=== PATIENT | female | born 1995 | race Hispanic/Latino ===

== ENCOUNTER 2017-03-19 07:36 | Outpatient (CLI) | payer OTHER ==
[~2017-03-19] VITALS: Ht 152.4 cm; Wt 66.1 kg
[2017-03-19 07:58] VITALS: BP 112/77
[2017-03-19] MEDS ORDERED: TYLE325C PO (08:18)
[2017-03-19] MEDS ORDERED: COLA100C5 PO (08:18)
[2017-03-19 09:22] VITALS: BP 128/88
== END 2017-03-19 09:41 | disposition home or self-care (01) ==
LOC: M LDO 07:36
PROVIDERS: ATTEND Obstetrics & Gynecology
DX: O47.1 False labor at or after 37 completed weeks of gestation (principal); Z3A.39 39 weeks gestation of pregnancy; Z91.010 Allergy to peanuts

== ENCOUNTER 2017-03-20 22:28 | Inpatient (IN) | payer OTHER ==
[~2017-03-20] VITALS: Ht 152.4 cm; Wt 66.1 kg
[~2017-03-20 22:28] MED LIST: COLA100C5 PO; TYLE325C PO
[2017-03-20 22:51] VITALS: BP 132/92
[2017-03-20] MEDS ORDERED: PENICILLIN G POTASSIUM IV 5 MU in D5W MINI-BAG PLUS 100 ML IV STA (23:33)
[2017-03-20] MEDS ORDERED: LACTATED RINGER'S 1000 ML IV STA (23:33)
--- NOTE | 2017-03-20 23:47 | HPEPDOC ---
Obstetrical History & Physical General Date of Admission Mar 20, 2017 at 23:20 History of Present Illness 21 y/o at 39+3 by LMP and 8 wk US with painful reg ctx's for the past 1-2 days. Seen yest and semt home. pos FM. No VB/LOF. Preg uncomplicated. Chief Complaint: Contractions, term Care Care: Good Care Past Medical History Past Obstetrical History : Past Obstetrical History: Multigrav[employer] History: Spontaneous (x1) Past Medical History Medical History denies Surgical History: Denies/None Family History Significant Family History: No pertinent family hx Social History Marital Status: Family situation: Spouse/partner home Psychosocial History: No pertinent psych hx * Smoker: non-smoker Alcohol: Denies Drugs: denies Abuse Violence Screening Have you been hit/kicked/slapp: No Have you been sexually assault: No Imunizations Tdap status: current Allergies Coded Allergies: No Known Allergies (Unverified , 03/19/17) Medications Scheduled Docusate Sodium (Colace) 100 Mg Cap, 100 MG PO DAILY Miscellaneous Medications (Tylenol) 325 Mg Cap, 325 MG PO Physical Examination Physical Examination GENERAL: Alert and oriented times three. BREAST: . ABDOMEN: Gravid and non-tender to touch. FETUS: Is vertex (VTX) by DOC DUKE check is 4-5 cm. HEART RATE: Regular rate and rhythm. LUNGS: Clear to auscultation (CTA). EXTREMITIES: No edema. Vital Signs/I&O Vital Signs Date Time Temp Pulse Resp B/P (MAP) Pulse Ox O2 Delivery O2 Flow Rate FiO2 03/20/17 22:51 98.3 109 18 132/92 (105) Laboratory Data [facility] Laboratory Tests 2 03/20/17 23:26: Serology Scanned Report Hepatitis B Testing Urine Culture: Other (gbs) Pertinent Laboratoy Data Blood Type: O+ RBC Antibody Screen: Negative HIV: Negative Hepatitis B: Negative Hepatitis C: Unknown Rapid Plasma Reagin: Nonreactive Rubella: Immune Varicella: Immune Chlamydia/Gonorrhea: Negative Group B Streptococcus: Positive Quad Screen Test: Declined Cystic Fibrosis: Negative Anatomy Ultrasound Ultrasound Date: Nov 05, 2016 Placenta Location: Anterior Normal Anatomy: Yes Placenta Previa: No Assessment Variability: Moderate Accelerations: Positive Decelerations: None Tocometer Contractions: Yes Frequency: regular Duration: greater than 60 seconds Strength: palpated as moderate Assessment/Plan Assessment Active labor Plan Admit and orient. Administrative Receptionist and consent. Diet: clrs Group B Streptococcus (GBS) pos. Will plan on cx check after 2nd dose PCN Labs and intravenous (IV) per unit protocol. Counseled on Pitocin and induction of labor (IOL). Lactated Ringers (LR): Bolus 1000 mL prior to epidural, then at 125 mL/hr. Anticipate normal spontaneous delivery C-S as appropriate. Sessions SESSIONS,CHACHA Oconnell MD Mar 20, 2017 23:47
[2017-03-20] MEDS: LR 1,000 ML IV SCH (23:52)
[2017-03-20 23:59] VITALS: BP 125/79
[2017-03-20 23:59] LABS: MEAN CORPUSCULAR HEMOGLOBIN 26.6 pg (27.0-33.0); MEAN CORPUSCULAR HGB CONC 31.9 g/dl (32.0-36.5); MEAN CORPUSCULAR VOLUME 83.3 fl (80.0-96.0); PLATELET COUNT, AUTOMATED 310 10^3/uL (150-450); RED CELL DISTRIBUTION WIDTH 14.7 % (11.5-14.5); WHITE BLOOD COUNT 11.5 10^3/uL (4.0-10.0)
[2017-03-21] VITALS (48 sets, daily range): BP systolic 89–127; BP diastolic 51–85
[2017-03-21] MEDS ORDERED: FENTANYL 2MCG/ML ROPIVACAINE 0.2% IN 0.9% NACL 200ML IVBAG As Ordered ONE (01:31)
[2017-03-21] MEDS ORDERED: EPIDURAL/PCA KEYS XX PRN (02:30)
[2017-03-21] MEDS ORDERED: FENTANYL/ROPIVACAINE/NACL BAG 200 ML EPIDURAL SCH (02:30)
[2017-03-21] MEDS ORDERED: ONDANSETRON 4MG/2ML VIAL (J2405) IV PRN ×2 (02:30→15:45)
[2017-03-21] MEDS ORDERED: diphenhydrAMINE INJ 50MG/ML VIAL (J1200) IV PRN (02:30)
[2017-03-21] MEDS ORDERED: EPIDURAL COMMENT XX SCH (02:30)
[2017-03-21] MEDS ORDERED: LACTATED RINGER'S 1000 ML IV PRN (02:30)
[2017-03-21] MEDS ORDERED: REFRIGERATOR IV KEYS XX PRN (02:30)
[2017-03-21] MEDS ORDERED: ePHEDrine SULFATE 25 MG/5 ML(5MG/ML) SYRINGE IV PRN (02:30)
[2017-03-21] MEDS ORDERED: NALOXONE INJ 0.4 MG/1 ML VIAL (J2310) IV PRN (02:30)
[2017-03-21] MEDS: PENICILLIN G POTASSIUM IV 2.5 MU in D5W 100 ML IV SCH ×3 (04:07→13:00)
--- NOTE | 2017-03-21 05:28 | IPNPDOC ---
Text Note Date of Service The patient was seen on 03/21/17. NOTE FHT Cat 1, now s/p epidural-feeling well. Getting second dose GBS prophy currently Cx /- with small amt clr fluid Will SBAR MAJ Tran at ~0730 Sessions VS,Ct, I+O VSCt, I+O Laboratory Tests 03/20/17 23:49 Red Blood Count 3.84 L, Mean Corpuscular Volume 83.3, Mean Corpuscular Hemoglobin 26.6 L, Mean Corpuscular Hemoglobin Concent 31.9 L, Red Cell Distribution Width 14.7 H Vital Signs Date Time Temp Pulse Resp B/P (MAP) Pulse Ox O2 Delivery O2 Flow Rate FiO2 03/21/17 05:01 75 18 89/51 (64) 03/21/17 03:30 97.7 SESSIONS,CHACHA Oconnell MD Mar 21, 2017 05:28
[2017-03-21] MEDS ORDERED: OXYTOCIN DRIP 30 UNITS in APPROPRIATE DILUENT 1 EA IV SCH ×2 (08:30→15:31)
[2017-03-21] MEDS: LR 1,000 ML IV SCH (11:09)
[2017-03-21] MEDS ORDERED: DIBUCAINE 1% OINTMENT 30GM TOP PRN (15:45)
[2017-03-21] MEDS ORDERED: DOCUSATE SODIUM 100 MG CAP PO PRN (15:45)
[2017-03-21] MEDS ORDERED: ANUSOL HC CREAM 30GM TOP PRN (15:45)
[2017-03-21] MEDS: IBUPROFEN 600 MG TAB PO PRN (18:36)
[2017-03-21] MEDS: ACETAMINOPHEN TAB 650MG DOSE (2X325MG) PO PRN (22:53)
[2017-03-22] MEDS: IBUPROFEN 600 MG TAB PO PRN ×3 (00:42→19:28)
[2017-03-22 06:00] VITALS: BP 110/72
--- NOTE | 2017-03-22 08:41 | IPN ---
DATE: 03/22/2017 This patient has requested a circumcision of their male infant. After discussing risks and benefits of circumcision, the medical and nonmedical indications, the penile block and aftercare, and answered all questions, the patient signed and witnessed the consent form. We are awaiting the clearance by the business banking officer.
[2017-03-22] MEDS: PRENATAL VITAMINS CHEWABLE TABLET PO SCH (08:45)
[2017-03-22 18:00] VITALS: BP 121/71
[2017-03-23] MEDS: ACETAMINOPHEN TAB 650MG DOSE (2X325MG) PO PRN (00:13)
[2017-03-23] MEDS: IBUPROFEN 600 MG TAB PO PRN ×2 (02:33→09:07)
[2017-03-23 05:46] VITALS: BP 124/69
--- NOTE | 2017-03-23 08:02 | DSES ---
DATE OF ADMISSION: 03/20/2017 DATE OF DISCHARGE: 03/23/2017 This lady is a 21-year-old 2, now para 1, was admitted with contractions , had a spontaneous vaginal delivery, live male infant 6 pounds 14 ounces, scores of 8 and 9 at 1 and 5 minutes, respectively. She had an epidural in place, had a second-degree perineal tear which was repaired in the usual fashion. Her admitting hemoglobin 10.2, hematocrit 32.2, and platelets were 310. Her vital signs on discharge; Blood pressure was 124/69, respirations 19, pulse 82, and temperature 98.3. We discussed phlebitis, cystitis, mastitis, endometritis, cellulitis, diet, exercise, pain management, perineal, breast, and wound care. She was normocephalic, atraumatic. Neck: Full range of motion. Pupils equal and reactive to light. Distal pulses were normal, symmetric. No evidence of deep venous thrombosis (DVT), pulmonary embolus (PE), or superficial phlebitis. Lungs were clear bilaterally to bases, no wheezes or rhonchi. No costovertebral angle (CVA) tenderness. Uterus 2 below. Lochia is moderate. Four quadrant bowel sounds are noted. Perineum is healing. No rashes, lesions, or pruritus. No arthralgia, myalgia. No complaints of cough, wheezes, shortness of breath, or dyspnea on exertion. No chest pain, not bleeding. Neurological complete. No incontinence, urgency, or frequency. No nausea, vomiting, diarrhea, or constipation. In summary, we have a term gestation delivered a live male , discharged to followup in 6 weeks' time for checkup. edited: 03/23/2017 1342 tkf [id number]
[2017-03-23] MEDS ORDERED: IBUP200C10 PO (08:33)
[2017-03-23] MEDS ORDERED: PREN29TA4 PO (08:33)
[2017-03-23] MEDS ORDERED: APAP325T4 PO (08:33)
[2017-03-23] MEDS: PRENATAL VITAMINS CHEWABLE TABLET PO SCH (09:07)
== END 2017-03-23 12:00 | disposition home or self-care (01) | DRG 775 ==
LOC: M LDO 22:28 → M LDI 23:20 → M OBS 03-21 17:44
PROVIDERS: ADMIT Obstetrics & Gynecology; ATTEND Obstetrics & Gynecology
PROC: 10E0XZZ Delivery of Products of Conception, External Approach (ICD-10-PCS; principal; 2017-03-21)
PROC: 0KQM0ZZ Repair Perineum Muscle, Open Approach (ICD-10-PCS; 2017-03-21)
DX: O69.82X0 Labor and delivery complicated by other cord entanglement, without compression, not applicable or unspecified (principal); Z37.0 Single live birth; Z3A.39 39 weeks gestation of pregnancy; O99.820 Streptococcus B carrier state complicating pregnancy; O70.1 Second degree perineal laceration during delivery

== ENCOUNTER 2022-08-04 07:08 | Emergency (ER) | payer OTHER ==
[~2022-08-04] VITALS: Ht 152.4 cm; Wt 56.9 kg
[~2022-08-04 07:08] MED LIST changes: +APAP325T4 PO; +IBUP200C25 PO; +PREN29TA4 PO
[2022-08-04] MEDS ORDERED: ACETAMINOPHEN TAB 650MG DOSE (2X325MG) PO ONE (07:40)
[2022-08-04] MEDS ORDERED: ONDANSETRON 4MG ORAL DISINTEGRATING TAB PO ONE (07:40)
[2022-08-04] MEDS ORDERED: ONDA4TAB6 PO (08:41)
[2022-08-04 08:49] VITALS: BP 105/65
== END 2022-08-04 08:50 | disposition home or self-care (01) ==
LOC: M ED 07:08
DX: F07.81 Postconcussional syndrome (principal); S00.03XA Contusion of scalp, initial encounter; W22.8XXA Striking against or struck by other objects, initial encounter; Y99.1 Military activity; Z91.010 Allergy to peanuts; Z79.899 Other long term (current) drug therapy

== ENCOUNTER 2022-09-21 11:37 | Emergency (ER) | payer OTHER ==
[~2022-09-21] VITALS: Ht 152.4 cm; Wt 56.5 kg
[~2022-09-21 11:37] MED LIST changes: +ONDA4TAB6 PO
[2022-09-21 13:04] LABS: BASO % 0.2 % (0.0-1.0); EOS # 0.1 10^3/uL (0.0-0.5); EOS % 0.9 % (0.0-3.0); HEMATOCRIT 35.3 % (36.0-47.0); HEMOGLOBIN 11.3 g/dl (12.0-15.5); LYMPH # 1.8 10^3/uL (1.5-5.0); LYMPH % 19.5 % (24.0-44.0); MEAN CORPUSCULAR HEMOGLOBIN 27.4 pg (27.0-33.0); MEAN CORPUSCULAR VOLUME 85.7 fl (80.0-96.0); MONO # 0.5 10^3/uL (0.0-0.8); MONO % 5.8 % (2.0-8.0); NEUTROPHILS # 6.6 10^3/uL (1.5-8.5); NEUTROPHILS % 73.2 % (36.0-66.0); PLATELET COUNT, AUTOMATED 371 10^3/uL (150-450); RED BLOOD COUNT 4.12 10^6/uL (4.00-5.40)
[2022-09-21 13:20] LABS: LIPASE 30 U/L (12-53)
[2022-09-21 13:22] LABS: ALBUMIN 3.8 G/DL (3.2-5.2); ALKALINE PHOSPHATASE 72 U/L (46-116); ALT/SGPT 11 U/L (7.0-40); AST/SGOT 15 U/L (<34); BILIRUBIN,DIRECT 0.4 MG/DL (<0.4); BILIRUBIN,TOTAL 1.4 MG/DL (0.3-1.2); BLOOD UREA NITROGEN 7 MG/DL (9-23); CALCIUM LEVEL 8.3 MG/DL (8.5-10.1); CARBON DIOXIDE LEVEL 25 MMOL/L (20-31); CHLORIDE LEVEL 103 MMOL/L (98-107); CREATININE FOR GFR 0.45 MG/DL (0.55-1.30); GLOMERULAR FILTRATION RATE > 60.0 (>60); GLUCOSE, FASTING 82 MG/DL (60-100); POTASSIUM SERUM 3.8 MMOL/L (3.5-5.1); SODIUM LEVEL 136 MMOL/L (136-145); TOTAL PROTEIN 7.2 G/DL (5.7-8.2)
[2022-09-21 13:35] LABS: HCG, SERUM QUANTITATIVE 42438.7 MIU/ML (<4.2)
[2022-09-21] MEDS ORDERED: NS 1,000 ML IV ONE (14:15)
[2022-09-21] MEDS ORDERED: ONDANSETRON 4MG 2ML VIAL IV ONE (14:15)
[2022-09-21] MEDS ORDERED: UNIS25TA3 PO (15:50)
[2022-09-21] MEDS ORDERED: ONDA4TAB6 PO (15:50)
[2022-09-21] MEDS ORDERED: PYRI25TA2 PO (15:50)
[2022-09-21 16:22] VITALS: BP 114/68
== END 2022-09-21 16:27 | disposition home or self-care (01) ==
LOC: M ED 11:37
DX: O21.1 Hyperemesis gravidarum with metabolic disturbance (principal); Z3A.01 Less than 8 weeks gestation of pregnancy; Z91.010 Allergy to peanuts
CPT/HCPCS: 80048; 80076; 81001; 83690; 84702; 85025; 96374; 99284; J2405

== ENCOUNTER 2022-09-29 12:19 | Emergency (ER) | payer OTHER ==
[~2022-09-29] VITALS: Ht 152.4 cm; Wt 86.9 kg
[~2022-09-29 12:19] MED LIST changes: +PYRI25TA2 PO; +UNIS25TA3 PO
[2022-09-29] MEDS ORDERED: REGL10TA6 (12:26)
[2022-09-29] MEDS ORDERED: REGL5TAB2 PO (13:16)
[2022-09-29] MEDS ORDERED: PROMETHAZINE 25MG SUPP PR ONE (14:00)
[2022-09-29] MEDS ORDERED: NS 1,000 ML IV ONE (14:00)
[2022-09-29 14:08] LABS: BASO # 0.1 10^3/uL (0.0-0.2); BASO % 0.5 % (0.0-1.0); EOS # 0.1 10^3/uL (0.0-0.5); EOS % 0.6 % (0.0-3.0); HEMATOCRIT 35.5 % (36.0-47.0); HEMOGLOBIN 11.6 g/dl (12.0-15.5); LYMPH # 1.8 10^3/uL (1.5-5.0); MEAN CORPUSCULAR HEMOGLOBIN 28.2 pg (27.0-33.0); MEAN CORPUSCULAR HGB CONC 32.7 g/dl (32.0-36.5); MEAN CORPUSCULAR VOLUME 86.4 fl (80.0-96.0); MONO # 0.6 10^3/uL (0.0-0.8); MONO % 5.3 % (2.0-8.0); NEUTROPHILS # 7.9 10^3/uL (1.5-8.5); NEUTROPHILS % 76.4 % (36.0-66.0); PLATELET COUNT, AUTOMATED 337 10^3/uL (150-450); RED BLOOD COUNT 4.11 10^6/uL (4.00-5.40); WHITE BLOOD COUNT 10.3 10^3/uL (4.0-10.0)
[2022-09-29] MEDS ORDERED: PROM25SU3 PR (15:29)
[2022-09-29] MEDS ORDERED: ONDANSETRON 4MG 2ML VIAL IV ONE (15:50)
[2022-09-29 16:20] VITALS: BP 101/64
== END 2022-09-29 16:22 | disposition home or self-care (01) ==
LOC: M ED 12:19
DX: O21.9 Vomiting of pregnancy, unspecified (principal); Z3A.00 Weeks of gestation of pregnancy not specified; Z91.040 Latex allergy status; Z91.010 Allergy to peanuts; Z79.899 Other long term (current) drug therapy
CPT/HCPCS: 80047; 84702; 85025; 96374; 99284; J2405

== ENCOUNTER 2022-10-08 11:18 | Emergency (ER) | payer OTHER ==
[~2022-10-08] VITALS: Ht 152.4 cm; Wt 54.5 kg
[~2022-10-08 11:18] MED LIST changes: +PROM25SU3 PR; +REGL10TA6; +REGL5TAB2 PO
[2022-10-08 12:18] LABS: BASO # 0.1 10^3/uL (0.0-0.2); BASO % 0.5 % (0.0-1.0); EOS % 0.4 % (0.0-3.0); HEMATOCRIT 36.5 % (36.0-47.0); LYMPH # 1.8 10^3/uL (1.5-5.0); LYMPH % 17.7 % (24.0-44.0); MEAN CORPUSCULAR HEMOGLOBIN 28.5 pg (27.0-33.0); MEAN CORPUSCULAR HGB CONC 32.9 g/dl (32.0-36.5); MEAN CORPUSCULAR VOLUME 86.7 fl (80.0-96.0); MONO # 0.5 10^3/uL (0.0-0.8); MONO % 5.1 % (2.0-8.0); NEUTROPHILS # 7.9 10^3/uL (1.5-8.5); PLATELET COUNT, AUTOMATED 328 10^3/uL (150-450); RED BLOOD COUNT 4.21 10^6/uL (4.00-5.40); WHITE BLOOD COUNT 10.4 10^3/uL (4.0-10.0)
[2022-10-08 12:49] LABS: LIPASE 33 U/L (12-53)
[2022-10-08 12:51] LABS: ALBUMIN 3.5 G/DL (3.2-5.2); ALKALINE PHOSPHATASE 58 U/L (46-116); ALT/SGPT 11 U/L (7.0-40); AST/SGOT 8 U/L (<34); BILIRUBIN,DIRECT 0.3 MG/DL (<0.4); BILIRUBIN,TOTAL 1.1 MG/DL (0.3-1.2); BLOOD UREA NITROGEN 6 MG/DL (9-23); CALCIUM LEVEL 8.9 MG/DL (8.5-10.1); CARBON DIOXIDE LEVEL 24 MMOL/L (20-31); CHLORIDE LEVEL 103 MMOL/L (98-107); CREATININE FOR GFR 0.51 MG/DL (0.55-1.30); GLOMERULAR FILTRATION RATE > 60.0 (>60); GLUCOSE, FASTING 79 MG/DL (60-100); POTASSIUM SERUM 4.2 MMOL/L (3.5-5.1); SODIUM LEVEL 136 MMOL/L (136-145); TOTAL PROTEIN 7.1 G/DL (5.7-8.2)
[2022-10-08 13:02] LABS: HCG, SERUM QUALITATIVE POSITIVE (NEGATIVE)
[2022-10-08] MEDS ORDERED: NS 1,000 ML IV ONE ×2 (13:45)
[2022-10-08] MEDS ORDERED: ONDANSETRON 4MG 2ML VIAL IV ONE (13:45)
[2022-10-08 15:00] LABS: HCG, SERUM QUANTITATIVE 275882.4 MIU/ML (<4.2)
[2022-10-08 16:18] VITALS: BP 113/72
[2022-10-08] MEDS ORDERED: ONDA4TAB6 PO (16:29)
[2022-10-12] MEDS ORDERED: PREN200C PO (07:11)
[2022-10-12] MEDS ORDERED: MIRA3350 PO (10:34)
[2022-10-12] MEDS ORDERED: COLA100C5 PO (10:34)
== END 2022-10-08 16:47 | disposition home or self-care (01) ==
LOC: M ED 11:18
DX: O21.0 Mild hyperemesis gravidarum (principal); Z3A.01 Less than 8 weeks gestation of pregnancy; Z91.040 Latex allergy status; Z91.010 Allergy to peanuts
CPT/HCPCS: 80048; 80076; 81001; 83690; 84702; 84703; 85025; 96374; 99284; J2405

== ENCOUNTER 2022-10-18 10:19 | Emergency (ER) | payer OTHER ==
[~2022-10-18] VITALS: Ht 152.4 cm; Wt 54.3 kg
[~2022-10-18 10:19] MED LIST changes: +MIRA3350 PO; +PREN200C PO
[2022-10-18 10:20] VITALS: TEMP 97.9
[2022-10-18 12:19] LABS: BASO % 0.3 % (0.0-1.0); EOS # 0.1 10^3/uL (0.0-0.5); EOS % 0.7 % (0.0-3.0); HEMATOCRIT 35.7 % (36.0-47.0); HEMOGLOBIN 11.7 g/dl (12.0-15.5); LYMPH # 1.9 10^3/uL (1.5-5.0); LYMPH % 17.4 % (24.0-44.0); MEAN CORPUSCULAR HEMOGLOBIN 28.4 pg (27.0-33.0); MEAN CORPUSCULAR HGB CONC 32.8 g/dl (32.0-36.5); MEAN CORPUSCULAR VOLUME 86.7 fl (80.0-96.0); MONO # 0.4 10^3/uL (0.0-0.8); NEUTROPHILS # 8.4 10^3/uL (1.5-8.5); NEUTROPHILS % 77.2 % (36.0-66.0); PLATELET COUNT, AUTOMATED 323 10^3/uL (150-450); RED BLOOD COUNT 4.12 10^6/uL (4.00-5.40); WHITE BLOOD COUNT 10.8 10^3/uL (4.0-10.0)
[2022-10-18 12:32] LABS: LIPASE 33 U/L (12-53)
[2022-10-18 12:34] LABS: ALBUMIN 3.4 G/DL (3.2-5.2); ALKALINE PHOSPHATASE 57 U/L (46-116); ALT/SGPT 11 U/L (7.0-40); AST/SGOT 12 U/L (<34); BILIRUBIN,DIRECT 0.2 MG/DL (<0.4); BILIRUBIN,TOTAL 0.6 MG/DL (0.3-1.2); BLOOD UREA NITROGEN 9 MG/DL (9-23); CALCIUM LEVEL 8.4 MG/DL (8.5-10.1); CARBON DIOXIDE LEVEL 24 MMOL/L (20-31); CHLORIDE LEVEL 106 MMOL/L (98-107); CREATININE FOR GFR 0.47 MG/DL (0.55-1.30); GLOMERULAR FILTRATION RATE > 60.0 (>60); GLUCOSE, FASTING 80 MG/DL (60-100); POTASSIUM SERUM 4.1 MMOL/L (3.5-5.1); SODIUM LEVEL 136 MMOL/L (136-145); TOTAL PROTEIN 6.9 G/DL (5.7-8.2)
[2022-10-18] MEDS ORDERED: METOCLOPRAMIDE INJ 10MG/2ML VIAL IV ONE (14:40)
[2022-10-18] MEDS ORDERED: NS 1,000 ML IV ONE (15:55)
[2022-10-18] MEDS ORDERED: diphenhydrAMINE 50MG/ML VIAL IV STA (16:36)
[2022-10-18 18:27] VITALS: BP 101/67; O2SAT 96
== END 2022-10-18 18:31 | disposition home or self-care (01) ==
LOC: M ED 10:19
DX: O21.9 Vomiting of pregnancy, unspecified (principal); Z3A.09 9 weeks gestation of pregnancy; Z91.040 Latex allergy status; Z91.010 Allergy to peanuts; Z79.899 Other long term (current) drug therapy
CPT/HCPCS: 76801; 80048; 80076; 83690; 85025; 93976; 96374; 96375; 99284; J1200; J2765

== ENCOUNTER 2022-11-01 07:24 | Emergency (ER) | payer OTHER ==
[~2022-11-01] VITALS: Ht 152.4 cm; Wt 52.6 kg
[2022-11-01 08:14] LABS: BASO % 0.5 % (0.0-1.0); EOS # 0.1 10^3/uL (0.0-0.5); EOS % 1.4 % (0.0-3.0); HEMOGLOBIN 11.8 g/dl (12.0-15.5); LYMPH # 1.8 10^3/uL (1.5-5.0); MEAN CORPUSCULAR HEMOGLOBIN 29.1 pg (27.0-33.0); MEAN CORPUSCULAR HGB CONC 33.7 g/dl (32.0-36.5); MEAN CORPUSCULAR VOLUME 86.2 fl (80.0-96.0); MONO # 0.5 10^3/uL (0.0-0.8); MONO % 5.2 % (2.0-8.0); NEUTROPHILS # 6.2 10^3/uL (1.5-8.5); NEUTROPHILS % 71.6 % (36.0-66.0); PLATELET COUNT, AUTOMATED 307 10^3/uL (150-450); RED BLOOD COUNT 4.06 10^6/uL (4.00-5.40); WHITE BLOOD COUNT 8.7 10^3/uL (4.0-10.0)
[2022-11-01 08:26] LABS: APPEARANCE, URINE HAZY (CLEAR); BACTERIA, URINE AUTO NEGATIVE (NEGATIVE); BILIRUBIN, URINE AUTO NEGATIVE (NEGATIVE); BLOOD, URINE BLOOD 1+ (NEGATIVE); COLOR, URINE YELLOW (YELLOW); GLUCOSE, URINE (UA) AUTO NEGATIVE (NEGATIVE); KETONE, URINE AUTO NEGATIVE (NEGATIVE); LEUKOCYTE ESTERASE, URINE AUTO TRACE (NEGATIVE); MUCUS, URINE SMALL (NEGATIVE); NITRITE, URINE AUTO NEGATIVE (NEGATIVE); PROTEIN, URINE AUTO NEGATIVE (NEGATIVE); RBC, URINE AUTO 1 /HPF (0-3); SPECIFIC GRAVITY URINE AUTO 1.024 (1.002-1.035); SQUAMOUS EPITHELIAL CELL UR AU 4 /HPF (0-6); UROBILINOGEN, URINE AUTO 0.2 mg/dL (0.0-2.0); WBC, URINE AUTO 3 /HPF (0-3)
[2022-11-01 09:20] LABS: HCG, SERUM QUANTITATIVE 130524.6 MIU/ML (<4.2)
[2022-11-01] MEDS ORDERED: ACETAMINOPHEN 500 MG TAB PO ONE (09:20)
[2022-11-01 10:17] LABS: ALBUMIN 3.2 G/DL (3.2-5.2); ALKALINE PHOSPHATASE 54 U/L (46-116); ALT/SGPT 12 U/L (7.0-40); AST/SGOT 13 U/L (<34); BILIRUBIN,TOTAL 0.7 MG/DL (0.3-1.2); BLOOD UREA NITROGEN 8 MG/DL (9-23); CALCIUM LEVEL 8.7 MG/DL (8.5-10.1); CARBON DIOXIDE LEVEL 22 MMOL/L (20-31); CHLORIDE LEVEL 105 MMOL/L (98-107); CREATININE FOR GFR 0.56 MG/DL (0.55-1.30); GLOMERULAR FILTRATION RATE > 60.0 (>60); GLUCOSE, FASTING 79 MG/DL (60-100); POTASSIUM SERUM 4.1 MMOL/L (3.5-5.1); SODIUM LEVEL 134 MMOL/L (136-145); TOTAL PROTEIN 6.7 G/DL (5.7-8.2)
[2022-11-01] MEDS ORDERED: ACET-910 PO (10:42)
[2022-11-01 11:41] LABS: GC DNA AMPLIFICATION NEGATIVE (NEGATIVE)
[2022-11-01 12:35] VITALS: BP 102/66; TEMP 96.7; O2SAT 100
== END 2022-11-01 12:37 | disposition home or self-care (01) ==
LOC: M ED 07:24
DX: O26.891 Other specified pregnancy related conditions, first trimester (principal); R10.2 Pelvic and perineal pain; M54.50 Low back pain, unspecified; Z91.010 Allergy to peanuts; Z91.040 Latex allergy status; Z3A.11 11 weeks gestation of pregnancy; Z79.810 Long term (current) use of selective estrogen receptor modulators (SERMs); Z79.899 Other long term (current) drug therapy

== ENCOUNTER 2022-12-22 10:56 | Emergency (ER) | payer OTHER ==
[~2022-12-22] VITALS: Ht 152.4 cm; Wt 56.9 kg
[~2022-12-22 10:56] MED LIST changes: +ACET-910 PO
[2022-12-22 10:57] VITALS: TEMP 97.9
[2022-12-22 11:47] LABS: BASO % 0.3 % (0.0-1.0); EOS # 0.1 10^3/uL (0.0-0.5); EOS % 1.1 % (0.0-3.0); HEMOGLOBIN 10.8 g/dl (12.0-15.5); LYMPH # 1.6 10^3/uL (1.5-5.0); MEAN CORPUSCULAR HEMOGLOBIN 29.8 pg (27.0-33.0); MEAN CORPUSCULAR HGB CONC 33.8 g/dl (32.0-36.5); MEAN CORPUSCULAR VOLUME 88.4 fl (80.0-96.0); MONO # 0.6 10^3/uL (0.0-0.8); MONO % 6.2 % (2.0-8.0); NEUTROPHILS # 7.2 10^3/uL (1.5-8.5); NEUTROPHILS % 74.9 % (36.0-66.0); PLATELET COUNT, AUTOMATED 331 10^3/uL (150-450); RED BLOOD COUNT 3.62 10^6/uL (4.00-5.40); WHITE BLOOD COUNT 9.6 10^3/uL (4.0-10.0)
[2022-12-22 12:00] LABS: INR 1.02; PROTHROMBIN TIME 13.1 SECONDS (12.5-14.5)
[2022-12-22 12:01] LABS: PARTIAL THROMBOPLASTIN TIME 27.6 SECONDS (24.8-34.2)
[2022-12-22 12:08] LABS: CK-MB VALUE MASS < 1.0 NG/ML (<3.6)
[2022-12-22 12:09] LABS: LIPASE 37 U/L (12-53)
[2022-12-22 12:11] LABS: ALBUMIN 2.7 G/DL (3.2-5.2); ALKALINE PHOSPHATASE 80 U/L (46-116); ALT/SGPT < 9 U/L (7.0-40); AST/SGOT 11 U/L (<34); BILIRUBIN,DIRECT < 0.1 MG/DL (<0.4); BILIRUBIN,TOTAL 0.5 MG/DL (0.3-1.2); BLOOD UREA NITROGEN 7 MG/DL (9-23); CALCIUM LEVEL 8.4 MG/DL (8.5-10.1); CARBON DIOXIDE LEVEL 24 MMOL/L (20-31); CHLORIDE LEVEL 106 MMOL/L (98-107); CREATININE FOR GFR 0.36 MG/DL (0.55-1.30); GLOMERULAR FILTRATION RATE > 60.0 (>60); GLUCOSE, FASTING 95 MG/DL (60-100); POTASSIUM SERUM 3.6 MMOL/L (3.5-5.1); SODIUM LEVEL 138 MMOL/L (136-145); TOTAL PROTEIN 6.5 G/DL (5.7-8.2)
[2022-12-22 12:12] LABS: FREE T4 0.95 NG/DL (0.89-1.76); THYROID STIMULATING HORMONE 0.991 uIU/ML (0.55-4.78)
[2022-12-22 12:14] LABS: CPK CREATINE PHOSPHOKINASE 38 U/L (34-145); MB/CK RELATIVE INDEX 2.63 (< OR =4)
[2022-12-22 12:28] LABS: RSV AMPLIFICATION NEGATIVE (NEGATIVE)
[2022-12-22] MEDS ORDERED: KETOROLAC 30 MG/ML 1ML VIAL IV ONE (13:10)
[2022-12-22 13:25] LABS: CK-MB VALUE MASS < 1.0 NG/ML (<3.6)
[2022-12-22 13:27] LABS: CPK CREATINE PHOSPHOKINASE 37 U/L (34-145)
[2022-12-22 13:56] VITALS: O2SAT 100
[2022-12-22 14:00] VITALS: BP 110/74
== END 2022-12-22 15:05 | disposition home or self-care (01) ==
LOC: M ED 10:56
DX: O99.419 Diseases of the circulatory system complicating pregnancy, unspecified trimester (principal); Z3A.00 Weeks of gestation of pregnancy not specified; Z91.010 Allergy to peanuts; Z91.040 Latex allergy status; Z79.899 Other long term (current) drug therapy
CPT/HCPCS: 71045; 80047; 80048; 80076; 82550; 82553; 83690; 84439; 84443; 84484; 85025; 85610; 85730; 87631; 93005; 93041; 94760; 96374; 99285; J1885

== ENCOUNTER 2023-03-07 12:45 | Outpatient (CLI) | payer OTHER ==
[~2023-03-07] VITALS: Ht 152.4 cm; Wt 59.0 kg
[2023-03-07] MEDS ORDERED: UNIS25TA3 PO (13:10)
[2023-03-07] MEDS ORDERED: HOME MED LIST COMPLETE! XX SCH (13:10)
[2023-03-07] MEDS ORDERED: PRENTAB9 PO (13:10)
[2023-03-07 13:12] VITALS: BP 116/73
[2023-03-07] MEDS ORDERED: LACTATED RINGER'S 1000 ML IV STA (13:35)
[2023-03-07] MEDS ORDERED: PROMETHAZINE 25MG/ML 1ML VIAL IV PRN (13:40)
[2023-03-07 15:05] VITALS: BP 103/72
== END 2023-03-07 16:35 | disposition home or self-care (01) ==
LOC: M LDO 12:45
PROVIDERS: ATTEND Advanced Practice Midwife
DX: O26.893 Other specified pregnancy related conditions, third trimester (principal); R11.0 Nausea; R42 Dizziness and giddiness; Z3A.29 29 weeks gestation of pregnancy; O99.613 Diseases of the digestive system complicating pregnancy, third trimester; K59.00 Constipation, unspecified; Z79.899 Other long term (current) drug therapy; Z91.010 Allergy to peanuts; Z91.040 Latex allergy status
CPT/HCPCS: 59025; 96374; G0463; J2550

== ENCOUNTER 2023-03-16 13:19 | Outpatient (CLI) | payer OTHER ==
[~2023-03-16] VITALS: Ht 152.4 cm; Wt 62.7 kg
[~2023-03-16 13:19] MED LIST changes: +PRENTAB9 PO
[2023-03-16 13:34] VITALS: BP 119/74
[2023-03-16 14:52] LABS: APPEARANCE, URINE CLEAR (CLEAR); BACTERIA, URINE AUTO NEGATIVE (NEGATIVE); BILIRUBIN, URINE AUTO NEGATIVE (NEGATIVE); BLOOD, URINE BLOOD NEGATIVE (NEGATIVE); COLOR, URINE YELLOW (YELLOW); GLUCOSE, URINE (UA) AUTO NEGATIVE (NEGATIVE); KETONE, URINE AUTO NEGATIVE (NEGATIVE); LEUKOCYTE ESTERASE, URINE AUTO NEGATIVE (NEGATIVE); NITRITE, URINE AUTO NEGATIVE (NEGATIVE); PROTEIN, URINE AUTO NEGATIVE (NEGATIVE); RBC, URINE AUTO 0 /HPF (0-3); SPECIFIC GRAVITY URINE AUTO 1.012 (1.002-1.035); SQUAMOUS EPITHELIAL CELL UR AU 0 /HPF (0-6); UROBILINOGEN, URINE AUTO 0.2 mg/dL (0.0-2.0); WBC, URINE AUTO 0 /HPF (0-3)
== END 2023-03-16 15:30 | disposition home or self-care (01) ==
LOC: M LDO 13:19
PROVIDERS: ATTEND Advanced Practice Midwife
DX: O23.593 Infection of other part of genital tract in pregnancy, third trimester (principal); O26.893 Other specified pregnancy related conditions, third trimester; R10.2 Pelvic and perineal pain; M54.50 Low back pain, unspecified; N89.8 Other specified noninflammatory disorders of vagina; Z3A.30 30 weeks gestation of pregnancy; Z91.010 Allergy to peanuts; Z91.040 Latex allergy status
CPT/HCPCS: 59025; 81001; 87086; G0463

== ENCOUNTER 2023-03-29 06:24 | Outpatient (CLI) | payer OTHER ==
[~2023-03-29] VITALS: Ht 152.4 cm; Wt 62.8 kg
[2023-03-29 06:35] VITALS: BP 98/63
[2023-03-29] MEDS ORDERED: ONDANSETRON 4MG 2ML VIAL IV ONE (07:25)
[2023-03-29] MEDS ORDERED: HOME MED LIST COMPLETE! XX SCH (07:25)
[2023-03-29] MEDS ORDERED: LR 1,000 ML IV ONE (07:30)
[2023-03-29 07:37] LABS: HEMATOCRIT 29.8 % (36.0-47.0); HEMOGLOBIN 9.7 g/dl (12.0-15.5); MEAN CORPUSCULAR HEMOGLOBIN 27.1 pg (27.0-33.0); MEAN CORPUSCULAR HGB CONC 32.6 g/dl (32.0-36.5); MEAN CORPUSCULAR VOLUME 83.2 fl (80.0-96.0); PLATELET COUNT, AUTOMATED 357 10^3/uL (150-450); RED BLOOD COUNT 3.58 10^6/uL (4.00-5.40)
[2023-03-29] MEDS ORDERED: ACETAMINOPHEN 500 MG TAB PO ONE (08:30)
[2023-03-29 08:51] LABS: LIPASE 33 U/L (12-53)
[2023-03-29 08:53] LABS: AMYLASE 95 U/L (30-118)
== END 2023-03-29 09:20 | disposition home or self-care (01) ==
LOC: M LDO 06:24
PROVIDERS: ATTEND Obstetrics & Gynecology
DX: O99.513 Diseases of the respiratory system complicating pregnancy, third trimester (principal); O26.893 Other specified pregnancy related conditions, third trimester; J06.9 Acute upper respiratory infection, unspecified; R25.2 Cramp and spasm; R11.0 Nausea; Z3A.32 32 weeks gestation of pregnancy
CPT/HCPCS: 59025; 82150; 83690; 85027; 87635; 96360; G0463; J2405

== ENCOUNTER 2023-04-11 07:02 | Outpatient (CLI) | payer OTHER ==
[~2023-04-11] VITALS: Ht 152.4 cm; Wt 63.0 kg
[~2023-04-11 07:02] MED LIST changes: +ALBUTEROL SULFATE 2.5MG/0.5ML INH NEB SOLN INH PRN; +EPINEPHrine INJ 1 MG/ML 1ML AMP IM PRN; +IRON SUCROSE 300 MG in NS 250 ML OVER 90 MIN. IV ONE; +NS 1,000 ML IV SCH; +diphenhydrAMINE 50MG/ML VIAL IV PRN; +methylPREDNISolone 125MG 2ML VIAL IV PRN
[2023-04-11 07:15] VITALS: BP 116/71; O2SAT 100
[2023-04-11 09:35] VITALS: BP 106/63; O2SAT 100
== END 2023-04-11 09:35 ==
LOC: M INFU 07:02
PROVIDERS: ATTEND Obstetrics & Gynecology
DX: D50.9 Iron deficiency anemia, unspecified (principal)
CPT/HCPCS: 96365; 96366; J1756

== ENCOUNTER 2023-04-18 07:15 | Outpatient (CLI) | payer OTHER ==
[~2023-04-18] VITALS: Ht 152.4 cm; Wt 63.7 kg
[~2023-04-18 07:15] MED LIST changes: -IRON SUCROSE 300 MG in NS 250 ML OVER 90 MIN. IV ONE; -NS 1,000 ML IV SCH
[2023-04-18] MEDS ORDERED: NS 1,000 ML IV SCH (07:30)
[2023-04-18] MEDS ORDERED: IRON SUCROSE 300 MG in NS 250 ML OVER 90 MIN. IV ONE (07:30)
[2023-04-18 07:32] VITALS: BP 117/70; O2SAT 99
[2023-04-18 09:12] VITALS: BP 111/74; O2SAT 98
== END 2023-04-18 09:13 | disposition home or self-care (01) ==
LOC: M INFU 07:15
PROVIDERS: ATTEND Obstetrics & Gynecology
DX: D50.9 Iron deficiency anemia, unspecified (principal); Z91.010 Allergy to peanuts; Z91.040 Latex allergy status
CPT/HCPCS: 96365; J1756

== ENCOUNTER 2023-04-25 07:25 | Outpatient (CLI) | payer OTHER ==
[~2023-04-25 07:25] MED LIST changes: +NS 1,000 ML IV SCH
[2023-04-25 07:33] VITALS: BP 116/68; O2SAT 97
[2023-04-25] MEDS ORDERED: IRON SUCROSE 300 MG in NS 250 ML OVER 90 MIN. IV ONE (07:35)
[2023-04-25 09:00] VITALS: BP 103/56; O2SAT 100
[2023-04-25 09:30] VITALS: BP 108/66; O2SAT 99
== END 2023-04-25 09:33 ==
LOC: M INFU 07:25
PROVIDERS: ATTEND Obstetrics & Gynecology
DX: D50.9 Iron deficiency anemia, unspecified (principal)
CPT/HCPCS: 96365; J1756

== ENCOUNTER 2023-05-12 12:14 | Inpatient (IN) | payer OTHER ==
[~2023-05-12] VITALS: Ht 152.4 cm; Wt 64.0 kg
[2023-05-12] VITALS (24 sets, daily range): BP systolic 105–141; BP diastolic 64–91; O2SAT 99
[~2023-05-12 12:14] MED LIST changes: -ALBUTEROL SULFATE 2.5MG/0.5ML INH NEB SOLN INH PRN; -EPINEPHrine INJ 1 MG/ML 1ML AMP IM PRN; -NS 1,000 ML IV SCH; -diphenhydrAMINE 50MG/ML VIAL IV PRN; -methylPREDNISolone 125MG 2ML VIAL IV PRN
[2023-05-12] MEDS ORDERED: LR 1,000 ML IV SCH (12:25)
[2023-05-12] MEDS ORDERED: LACTATED RINGER'S 1000 ML IV STA (12:25)
[2023-05-12] MEDS ORDERED: METHYLERGONOVINE MALEATE 0.2MG/ML 1ML VIAL IM PRN (12:25)
[2023-05-12] MEDS ORDERED: LIDOCAINE 1% MDV 20ML VIAL INFIL PRN (12:25)
[2023-05-12] MEDS ORDERED: OXYTOCIN DRIP 30 UNITS in IV 1 EA IV PRN ×4 (12:25)
[2023-05-12] MEDS ORDERED: CARBOPROST TROMETHAMINE 250 MCG/ML AMP IM PRN (12:25)
[2023-05-12] MEDS ORDERED: PENICILLIN G POTASSIUM 5 MU IV 5 MU in D5W MINI-BAG PLUS 100 ML IV STA (12:25)
[2023-05-12] MEDS ORDERED: TRANEXAMIC ACID INJection 1,000 MG in NS 100 ML IV PRN (12:25)
[2023-05-12] MEDS ORDERED: HOME MED LIST COMPLETE! XX SCH (12:40)
[2023-05-12] MEDS ORDERED: ONDANSETRON 4MG 2ML VIAL IV ONE (13:05)
[2023-05-12] MEDS ORDERED: ONDANSETRON 4MG 2ML VIAL As Ordered ONE (13:13)
[2023-05-12 13:15] LABS: HEMATOCRIT 36.3 % (36.0-47.0); HEMOGLOBIN 11.7 g/dl (12.0-15.5); MEAN CORPUSCULAR HEMOGLOBIN 28.1 pg (27.0-33.0); MEAN CORPUSCULAR HGB CONC 32.2 g/dl (32.0-36.5); MEAN CORPUSCULAR VOLUME 87.1 fl (80.0-96.0); PLATELET COUNT, AUTOMATED 187 10^3/uL (150-450); RED BLOOD COUNT 4.17 10^6/uL (4.00-5.40); WHITE BLOOD COUNT 7.8 10^3/uL (4.0-10.0)
[2023-05-12] MEDS ORDERED: diphenhydrAMINE 50MG/ML VIAL IV PRN (13:45)
[2023-05-12] MEDS ORDERED: ONDANSETRON 4MG 2ML VIAL IV PRN (13:45)
[2023-05-12] MEDS ORDERED: EPIDURAL/PCA KEYS XX PRN (13:45)
[2023-05-12] MEDS ORDERED: LR 500 ML IV PRN (13:45)
[2023-05-12] MEDS ORDERED: FENTANYL/ROPIVACAINE/NACL BAG 100 ML EPIDURAL SCH (13:45)
[2023-05-12] MEDS ORDERED: ePHEDrine SULFATE 25 MG/5 ML(5MG/ML) SYRINGE IVP PRN (13:45)
[2023-05-12] MEDS ORDERED: NALOXONE INJ 0.4MG/1ML VIAL IV PRN (13:45)
[2023-05-12] MEDS ORDERED: REFLB XX ONE ×2 (14:05→14:42)
[2023-05-12] MEDS ORDERED: OXYTOCIN DRIP 30 UNITS in IV 1 EA IV SCH ×2 (15:40→18:15)
[2023-05-12] MEDS ORDERED: PEN G POT 3,000,000 UNIT/50 ML 3,000,000 UNIT in IV 1 EA IV SCH (17:00)
[2023-05-12] MEDS ORDERED: METHYLERGONOVINE MALEATE 0.2 MG TAB PO PRN (18:15)
[2023-05-12] MEDS ORDERED: IBUPROFEN 600MG TAB PO PRN (18:15)
[2023-05-12] MEDS ORDERED: ACETAMINOPHEN TAB 650MG DOSE (2X325MG) PO PRN (18:15)
[2023-05-12] MEDS ORDERED: ACETAMINOPHEN 500 MG TAB PO PRN (18:15)
[2023-05-12] MEDS ORDERED: DIBUCAINE 1% OINTMENT 30GM TOP PRN (18:15)
[2023-05-12] MEDS: DOCUSATE SODIUM 100MG CAPSULE PO PRN (21:19)
[2023-05-13 06:00] VITALS: BP 115/73; O2SAT 100
[2023-05-13] MEDS: PRENATAL VITAMINS CHEWABLE TABLET PO SCH (08:25)
[2023-05-13] MEDS: IBUPROFEN 800 MG TAB PO PRN ×2 (11:10→20:49)
[2023-05-13] MEDS: DOCUSATE SODIUM 100MG CAPSULE PO PRN (12:34)
[2023-05-13 18:00] VITALS: BP 112/79; O2SAT 100
[2023-05-14 06:00] VITALS: BP 111/73; O2SAT 99
[2023-05-14] MEDS ORDERED: ACET1TAB55 PO (07:48)
[2023-05-14] MEDS ORDERED: IBUP-1022 PO (07:48)
[2023-05-14] MEDS: PRENATAL VITAMINS CHEWABLE TABLET PO SCH (08:09)
[2023-05-14] MEDS: DOCUSATE SODIUM 100MG CAPSULE PO PRN (08:09)
[2023-05-14] MEDS: IBUPROFEN 800 MG TAB PO PRN (08:11)
== END 2023-05-14 12:22 | disposition home or self-care (01) | DRG 807 ==
LOC: M LDI 12:14 → M OBS 20:53
PROVIDERS: ADMIT Advanced Practice Midwife; ATTEND Advanced Practice Midwife
PROC: 10E0XZZ Delivery of Products of Conception, External Approach (ICD-10-PCS; principal; 2023-05-12)
DX: O99.02 Anemia complicating childbirth (principal); Z37.0 Single live birth; Z3A.38 38 weeks gestation of pregnancy; Z91.010 Allergy to peanuts; D64.9 Anemia, unspecified; Z91.040 Latex allergy status; O99.824 Streptococcus B carrier state complicating childbirth; O42.12 Full-term premature rupture of membranes, onset of labor more than 24 hours following rupture; O36.0990 Maternal care for other rhesus isoimmunization, unspecified trimester, not applicable or unspecified

== ENCOUNTER → 2023-11-23 | Outpatient (CLI) | payer OTHER ==
[~2023-11-23] MED LIST changes: +ACET1TAB55 PO; +IBUP-1022 PO; +ONDA-282 PO; -ONDA4TAB6 PO
== END ==
LOC: M RAD 07:20
PROVIDERS: ATTEND Physician Assistant
DX: M25.522 Pain in left elbow (principal); M77.12 Lateral epicondylitis, left elbow